=== PATIENT | female | born 1950 | race Caucasian/White ===

== ENCOUNTER 2016-10-12 10:06 | Day surgery (SDC) | payer OTHER ==
[~2016-10-12] VITALS: Ht 147.3 cm; Wt 59.1 kg
[~2016-10-12 10:06] MED LIST: 0.9% Sodium Chloride 1,000 ML IV SCH; CHOL200049 PO; ESTR1PAT13 TD; FLUT16SP NS; Sodium Chloride LOK Flush 10 mL Syringe IV PRN; [UNRECOGNIZED DRUG - CODE] PO; fentaNYL-PF 50 mCg/mL 2 mL Inj IVPUSH PRN
[2016-10-12 10:47] VITALS: BP 143/87; PULSE 65; RESP 14; O2SAT 97
[2016-10-12 11:44] VITALS: BP 116/67; PULSE 67; RESP 14; O2SAT 96
[2016-10-12 11:56] VITALS: BP 114/71; PULSE 64; RESP 14; O2SAT 97
[2016-10-12 12:14] VITALS: BP 119/78; PULSE 70; RESP 14; O2SAT 100
--- NOTE | 2016-10-12 14:29 | ENDO ---
[address] [address] ENDOSCOPY PROCEDURE PATIENT: AWA HUIZAR : 1950 MR#: [id number] ADMIT: 10/12/2016 JOB ID: [id number] DATE: 10/12/2016 PROCEDURE: Colonoscopy. INDICATIONS: Patient with a personal history of colon polyps and screening. The patient's ASA classification is 2. Mallampati score is 2. MEDICATIONS: 1. Versed 7 mg. 2. Fentanyl 150 mcg. INSTRUMENT USED: PCF H 180 AL. PREPARATION QUALITY: Was good. PROCEDURE DETAILS: After informed consent was obtained, the patient was brought to the GI suite, where she was placed on oxygen via nasal cannula and monitored with continuous pulse oximeter, telemetry and blood pressure monitoring. A time-out was performed. Then, she was placed in the left lateral decubitus position and medications were administered for sedation. A digital rectal exam was performed which was unremarkable. The colonoscope was then inserted under direct visualization to approximately 30 cm. At this point, there was a fixed loop of bowel that I was unable to traverse despite application of a moderate amount of pressure. At this point, the scope was then withdrawn and an upper endoscope was then introduced through the rectum and again we encountered resistance at approximately 30 cm. In the area, there were scattered diverticula. We tried multiple position changes and abdominal pressure and, however, despite this we were unable to advance the scope. At this point, procedure was aborted. Upper endoscope was then withdrawn back into the rectum and retroflexion was performed. Following retroflexion, remaining air in the rectum was suctioned, and procedure was completed. FINDINGS: 1. Sigmoid diverticulosis. 2. Incomplete colonoscopy. IMPRESSION: Failed colonoscopy and sigmoid diverticulosis. RECOMMENDATIONS: Barium enema to further evaluate. COMPLICATIONS: None. ESTIMATED BLOOD LOSS: Less than 1 mL.
--- NOTE | 2016-10-12 17:09 | DRSVH ---
PROCEDURE: X-RAY BARIUM ENEMA ([id number]) INDICATIONS: FAILED COLONOSCOPY COMPARISON: None. FINDINGS: KUB: Preprocedural photo studio assistant film demonstrates a normal bowel gas pattern. No suspicious abdominal calc ifications. Visualized solid organ contours appear normal in size. No suspicious bony lesions. Colon: There is adequate opacification of the entire colon. No strictures or extrinsic mass effects are identified. No colonic fistulae or perforations. Colon caliber appears normal. Scattered dive rticula present within the sigmoid colon without evidence for diverticulitis. The attending physician was personally present in the room during the examination. IMPRESSION: Mild diverticulosis involving the sigmoid colon. Dictated by: Serafin Adhikari [facility] Interpreted: Blanche Jimenez MD on 10/12/2016 at 17:00 Transcribed by: MARCELO on 10/12/2016 at 17:03 Approved by: Blanche Jimenez MD, PhD on 10/13/2016 at 9:43
== END 2016-10-12 23:59 | disposition home or self-care (01) ==
LOC: END 10:06
PROVIDERS: ATTEND Internal Medicine Gastroenterology
DX: Z12.11 Encounter for screening for malignant neoplasm of colon (principal); K57.30 Diverticulosis of large intestine without perforation or abscess without bleeding; Z86.010 Personal history of colon polyps
CPT/HCPCS: 45378; 74270; G0500; J2250; J3010; J7030